=== PATIENT | male | born 1985 | race Caucasian/White ===

== ENCOUNTER 2016-06-16 17:14 | Emergency (ER) | payer OTHER ==
[~2016-06-16] VITALS: Ht 182.9 cm; Wt 86.4 kg
[~2016-06-16 17:14] MED LIST: DOXYCYCLINE 10100 MG PO; MAGIC MOUTH PO; NO HOME MEDICATIONS; PREDNISONE20 MG PO
[2016-06-16 17:18] VITALS: TEMP 98.4
[2016-06-16] MEDS ORDERED: FLEXERIL 1010 MG/TAB PO (18:29)
[2016-06-16 18:45] VITALS: BP 103/64; PULSE 75
== END 2016-06-16 18:55 | disposition home or self-care (01) ==
LOC: COL.ER 17:14
DX: S39.012A Strain of muscle, fascia and tendon of lower back, initial encounter (principal); X50.0XXA Overexertion from strenuous movement or load, initial encounter
CPT/HCPCS: J2360